=== PATIENT | female | born 1980 | race Caucasian/White ===

== ENCOUNTER 2020-01-23 14:12 | Emergency (ER) | payer BC, SELFPAY ==
--- NOTE | 2020-01-23 14:23 | XR_ITS ---
PROCEDURE: XR KNEE LT 3V CLINICAL INDICATION: FALL Posttraumatic pain COMPARISON: No exams were available for comparison FINDINGS: No fracture or dislocation. No lytic or blastic change. There is normal mineralization. There are mild osteoarthritic changes of the medial compartment. Other findings:None. IMPRESSION: Minimal osteoarthritic change otherwise negative Dictated by: Henrique Real MD 01/23/2020 19:05 Henrique Real MD in [place] 01/23/2020 19:05
[2020-01-23 14:24] VITALS: BP 134/77; PULSE 86; RESP 20; O2SAT 100; BMI 32.4
--- NOTE | 2020-01-23 14:51 | HMH.EDUTC ---
[facility] [place] Disposition Clinical Impression: Instability of left knee joint Contusion of left knee Qualifiers: Encounter type: initial encounter Qualified Code(s): S80.02XA - Contusion of left knee, initial encounter Left knee pain Qualifiers: Chronicity: acute Qualified Code(s): M25.562 - Pain in left knee Disposition: Home, Self-Care Condition on Discharge: Good Instructions: How to Use Crutches, DI for Knee Pain, How to Use a Knee Immobilizer Additional Instructions: Rest the extremity, apply ice for 15 minutes as tolerated three or four times per day, Wear the knee immobilizer and use the crutches for ambulation assistance, Elevate the extremity as tolerated while you are resting. Take ibuprofen for pain. I sent in a prescription to your pharmacy. Follow up with orthopedics. I put in a referral but you need to call their office and schedule an appointment. Follow up with your regular doctor. GO TO THE ER FOR ANY WORSENING SYMPTOMS Prescriptions: Ibuprofen [Ibuprofen 600mg Tablet] 600 mg PO Q6HP PRN #30 tab PRN Reason: Mild Pain Transmission Status: Received by [facility] #[id number] Referrals: PCP,No [Primary Care Provider] - Portia Heath MD [Physician] - Forms: Work/School Release Time of Disposition: 15:23 Medical Decision Making - Medical Records Medical records reviewed: No: I reviewed the patient's medical records. - Jacob Inquiry Pt receiving controlled substance: No Vital Signs: 01/23/20 14:24 01/23/20 15:36 Temperature 98.5 F Pulse Rate 86 Pulse Rate [Right Brachial] 86 Respiratory Rate 20 20 Blood Pressure 134/77 Blood Pressure [Right Arm] 134/77 Blood Pressure Mean [Right Arm] 96 Blood Pressure Source [Right Arm] Automatic Cuff Blood Pressure Position [Right Arm] Sitting 02 Sat by Pulse Oximetry 100 Oxygen Delivery Method Room Air [facility] [place] HPI - General Stated complaint: AO 01/21/20 fall, lt knee pain Time Seen by Provider: 01/23/20 14:51 Mode of Arrival: Ambulatory Source of Information: Patient Limitations: No Limitations Description of Symptoms (Recalled from Triage Doc. by RN): PATIENT C/O LEFT KNEE PAIN AFTER FALLNG AT [facility] YESTERDAY HEENT Symptoms (Recalled from RN notes): No Resp Symptoms (Recalled from RN notes): No Skin Symptoms (Recalled from RN notes): No MS Symptoms (Recalled from RN notes): Yes Functional Status (Recalled from RN notes): WNL - History of Present Illness Provider Complaint: She states that she was at [employer] when she slipped on a wet floor. There were no signs or warnings about the wet floor. When she slipped, her right leg went out in front of her and she came down with all her weight on to her left knee on the floor. Since then she has had severe left knee pain that is worse with walking and bearing weight. She has tried to rest her knee and let it get better, but she states that it is getting worse instead of better. Ibuprofen and other otc medications have not helped her pain. - Related Data Home Medications Medication Instructions Recorded Confirmed Triamterene/Hydrochlorothiazid 1 each PO DAILY 01/23/20 01/23/20 [Triamterene-Hctz 37.5-25 mg Tb] atenoloL [Atenolol 25mg Tab] 25 mg PO DAILY 01/23/20 01/23/20 Previous Rx's Medication Instructions Recorded Ibuprofen [Ibuprofen 600mg 600 mg PO Q6HP PRN #30 tab 01/23/20 Tablet] Allergies Allergy/AdvReac Type Severity Reaction Status Date / Time No Known Allergies Allergy Verified 01/23/20 14:26 - Worker's Comp Is this a Worker's Comp case?: No [facility] History - Hepatitis A Screen Drug use history?: No High risk sexual behaviors?: No History of sexually transmitted infection?: No Currently employed?: No Childcare worker?: No Do you have indoor plumbing?: Yes Do you have electricity?: Yes Attestation statement:: This patient has been screened for Hepatitis A risk factors. I have reviewed the patient's past medical histo
[2020-01-23 15:36] VITALS: BP 134/77; PULSE 86; RESP 20; TEMP 36.9; O2SAT 100
== END 2020-01-23 15:37 | disposition home or self-care (01) ==
PROVIDERS: Emergency Provider Nurse Practitioner Family
DX: S80.02XA Contusion of left knee, initial encounter (principal); W01.0XXA Fall on same level from slipping, tripping and stumbling without subsequent striking against object, initial encounter; Y92.89 Other specified places as the place of occurrence of the external cause
CPT/HCPCS: 29505; 73562; 99202